=== PATIENT | male | born 1945 | race Two or more races ===

== ENCOUNTER → 2023-02-14 | Emergency (ER) | payer OTHER ==
[~2023-02-14] VITALS: Ht 172.7 cm; Wt 83.0 kg
[~2023-02-14] MED LIST: ACETAMINOPHEN 325 MG TABLET PO ONE; ACETAMINOPHEN ES 500 MG TABLET ONE
[2023-02-14 13:42] VITALS: BP 115/63
--- NOTE | 2023-02-14 14:18 | NUR ---
X-RAY TECH AT THE BEDSIDE
[2023-02-14 15:38] LABS: BASOPHILS # (AUTO) 0.1 K/uL (0.0-0.2); EOSINOPHILS % (AUTO) 4.4 % (0.0-6.0); HEMATOCRIT 33 % (39-51); LYMPHOCYTES # (AUTO) 1.4 K/uL (0.8-4.8); MEAN CORPUSCULAR HGB CONC 33 g/dl (31.0-36.0); MEAN CORPUSCULAR VOLUME 90 fL (80-96); MONOCYTES # (AUTO) 0.6 K/uL (0.1-1.30); MONOCYTES % (AUTO) 11.9 % (2.0-12.0); NEUTROPHILS # (AUTO) 3.1 K/uL (1.8-8.9); NEUTROPHILS % (AUTO) 56.7 % (43.0-81.0); PLATELET COUNT (AUTO) 181 K/uL (150-450); RED BLOOD CELL COUNT(AUTO) 3.69 MIL/uL (4.5-6.0); WHITE BLOOD COUNT (AUTO) 5.4 K/uL (4.3-11.0)
--- NOTE | 2023-02-14 15:42 | NUR ---
PT BIBS FOR S/P FALL.
[2023-02-14 15:52] LABS: CALCIUM, SERUM 8.9 mg/dL (8.5-10.1); CARBON DIOXIDE 35 mmol/L (21-32); CHLORIDE 101 mmol/L (98-107); CREATININE 4.1 mg/dL (0.6-1.3); GLUCOSE 174 mg/dL (74-106); POTASSIUM 4.7 mmol/L (3.5-5.1); SODIUM SERUM 137 mmol/L (136-145); UREA NITROGEN, BLOOD 32 mg/dL (7-18)
--- NOTE | 2023-02-14 15:52 | NUR ---
CALLED [facility] [phone] DR. ONEAL WILL CALL BACK.
--- NOTE | 2023-02-14 16:43 | NUR ---
PT ACCEPTED TO [facility] [place] UNDER DR. HYUN Dutton. PLEASE [phone] FOR REPORT TRANSPORT PRN AT [phone] ETA.
--- NOTE | 2023-02-14 17:15 | NUR ---
[facility] FOR TRANSFER [facility]. PT IN STABLE CONDITION.
--- NOTE | 2023-02-14 17:31 | NUR ---
Coretta transfer to [facility] in stable condition. Written and verbal after care instructions given. Patient verbalizes understanding of instruction.
== END ==
LOC: ER 13:25
DX: S82.102A Unspecified fracture of upper end of left tibia, initial encounter for closed fracture (principal); E11.22 Type 2 diabetes mellitus with diabetic chronic kidney disease; I12.0 Hypertensive chronic kidney disease with stage 5 chronic kidney disease or end stage renal disease; N18.6 End stage renal disease; Z99.2 Dependence on renal dialysis; W01.0XXA Fall on same level from slipping, tripping and stumbling without subsequent striking against object, initial encounter; Y93.89 Activity, other specified; Y92.89 Other specified places as the place of occurrence of the external cause; Y99.8 Other external cause status
CPT/HCPCS: 99285; 29505; 73590; 85025; 80048; 36415; 82962; A6403